=== PATIENT | male | born 1930 | race Caucasian/White ===

== ENCOUNTER 2017-01-27 12:08 | Emergency (ER) | payer MEDICARE ==
[~2017-01-27] VITALS: Ht 177.8 cm; Wt 76.3 kg
[2017-01-27 13:06] VITALS: BP 158/83
--- NOTE | 2017-01-27 13:06 | NUR ---
dr angeline hill in reference to this pt
== END 2017-01-27 13:31 | disposition home or self-care (01) ==
LOC: ED 12:09
DX: I10 Essential (primary) hypertension (principal)
CPT/HCPCS: 99283; 99284

== ENCOUNTER → 2017-01-27 | Outpatient (CLI) | payer MEDICARE | LOC: RAD 13:34 | PROVIDERS: ATTEND Pain Medicine Pain Medicine | DX: M25.552 Pain in left hip (principal) | CPT/HCPCS: 73502 ==